=== PATIENT | female | born 1950 | race Caucasian/White ===

== ENCOUNTER 2025-06-26 21:50 | Emergency (ER) | payer SELFPAY ==
[~2025-06-26] VITALS: Ht 165.1 cm; Wt 73.0 kg
[2025-06-26 21:55] VITALS: O2SAT 97
[2025-06-26 23:02] LABS: BASOPHILS % 1.0 % (0.0-2.0); EOSINOPHILS % 2.3 % (0.0-5.0); HEMATOCRIT. 41.6 % (36.0-48.0); HEMOGLOBIN. 13.7 g/dL (12.0-16.0); LYMPHOCYTES % 27.8 % (20.0-50.0); MEAN PLATELET VOLUME 8.4 fl (7.4-10.4); MONOCYTES % 7.2 % (2.0-8.0); NEUTROPHILS % 61.7 % (40.0-76.0); PLATELET 174 x1000/uL (130-400); RED BLOOD CELL COUNT 4.75 mill/uL (4.2-5.4); RED CELL DISTRIBUTION WIDTH 14.2 % (11.6-14.6)
[2025-06-26 23:14] LABS: CREATININE 0.8 mg/dL (0.6-1.0); UREA NITROGEN BLOOD 13 mg/dL (9-23)
[2025-06-26 23:15] LABS: TROPONIN I HIGH SENSITIVITY 19 ng/L (3.0-34)
[2025-06-27 00:59] LABS: TROPONIN I HIGH SENSITIVITY 20 ng/L (3.0-34)
[2025-06-27 02:18] VITALS: BP 145/73; PULSE 65; RESP 15; TEMP 36.7; O2SAT 97
== END 2025-06-27 02:40 | disposition home or self-care (01) ==
LOC: ER 21:50
DX: S00.03XA Contusion of scalp, initial encounter (principal); F03.90 Unspecified dementia, unspecified severity, without behavioral disturbance, psychotic disturbance, mood disturbance, and anxiety; R94.31 Abnormal electrocardiogram [ECG] [EKG]; W01.0XXA Fall on same level from slipping, tripping and stumbling without subsequent striking against object, initial encounter; Y93.89 Activity, other specified; Y92.89 Other specified places as the place of occurrence of the external cause; Y99.8 Other external cause status
CPT/HCPCS: 36415; 80048; 84484; 85025; 93005; 99284

== ENCOUNTER 2025-08-04 13:45 | Emergency (ER) | payer OTHER ==
[~2025-08-04] VITALS: Ht 170.2 cm; Wt 75.0 kg
[2025-08-04 13:53] VITALS: O2SAT 99
[2025-08-04 15:19] VITALS: BP 122/76; PULSE 88; RESP 14; TEMP 37; O2SAT 99
== END 2025-08-04 15:20 | disposition home or self-care (01) ==
LOC: ER 14:38
DX: S00.03XA Contusion of scalp, initial encounter (principal); E03.9 Hypothyroidism, unspecified; F03.90 Unspecified dementia, unspecified severity, without behavioral disturbance, psychotic disturbance, mood disturbance, and anxiety; W01.10XA Fall on same level from slipping, tripping and stumbling with subsequent striking against unspecified object, initial encounter; Y93.89 Activity, other specified; Y92.009 Unspecified place in unspecified non-institutional (private) residence as the place of occurrence of the external cause; Y99.8 Other external cause status
CPT/HCPCS: 99284